=== PATIENT | female | born 2000 | race Caucasian/White ===

== ENCOUNTER 2018-05-14 13:28 | Inpatient (IN) | payer OTHER ==
[~2018-05-14] VITALS: Ht 152.4 cm; Wt 81.8 kg
[2018-05-14] MEDS ORDERED: LACTATED RINGERS 1,000 ML IV PRN (13:33)
[2018-05-14 13:45] VITALS: BP 143/83
[2018-05-14] MEDS ORDERED: ACETAMINOPHEN 325 MG TABLET ONE ×3 (14:28→23:27)
[2018-05-14 14:29] LABS: MICROSCOPIC INDICATED
[2018-05-14] MEDS: ACETAMINOPHEN 325 MG TABLET PO PRN ×3 (14:31→23:31)
[2018-05-14] MEDS ORDERED: PREN1TAB60 PO (15:41)
[2018-05-14] MEDS ORDERED: ALBUTEROL INH (15:47)
[2018-05-14] MEDS ORDERED: MONT10TA9 PO (15:49)
[2018-05-14] MEDS ORDERED: ACET325C5 PO (15:51)
[2018-05-14] MEDS ORDERED: LABETALOL 100 MG TABLET ONE (19:48)
[2018-05-14] MEDS: LABETALOL 100 MG TABLET PO SCH (19:50)
[2018-05-14] MEDS: SODIUM CHLORIDE FLUSH 10ML SYR IVF SCH (21:00)
[2018-05-15] MEDS ORDERED: LABETALOL 100 MG TABLET ONE ×3 (03:28→19:25)
[2018-05-15] MEDS: LABETALOL 100 MG TABLET PO SCH ×3 (03:31→19:44)
[2018-05-15] MEDS ORDERED: ACETAMINOPHEN 325 MG TABLET ONE ×2 (06:21→14:50)
[2018-05-15] MEDS: ACETAMINOPHEN 325 MG TABLET PO PRN ×2 (06:24→14:52)
[2018-05-15 06:26] LABS: MEAN CORPUSCULAR HGB CONC 34.3 g/dL (32.4-35.8); MEAN CORPUSCULAR VOLUME 90.5 fL (80-100); MEAN PLATELET VOLUME 8.6 fL (7.4-10.4); PLATELET COUNT 210 x10^3/uL (130-400); RED BLOOD COUNT 4.05 x10^6/uL (3.82-5.3); RED CELL DISTRIBUTION WIDTH 13.4 % (9.6-15.2)
[2018-05-15 06:38] LABS: ALANINE AMINOTRANSFERASE 16 U/L (12-78); ALBUMIN 2.1 g/dL (3.4-5.0); ANION GAP 12 mmol/L (5-15); CALCIUM 7.2 mg/dL (8.5-10.1); CHLORIDE 107 mmol/L (98-107); CREATININE 0.86 mg/dL (0.55-1.02)
[2018-05-15 06:40] LABS: ALKALINE PHOSPHATASE 127 U/L (45-117); BILIRUBIN,TOTAL 0.3 mg/dL (0.2-1.0); TOTAL PROTEIN 5.2 g/dL (6.4-8.2)
[2018-05-15 06:49] LABS: BASOPHILS # (AUTO) 0.01 x10^3/uL (0-0.3); BASOPHILS % (AUTO) 0 % (0-1); EOSINOPHILS # (AUTO) 0.01 x10^3/uL (0-0.8); EOSINOPHILS % (AUTO) 0 % (1-7); LYMPHOCYTES # (AUTO) 1.59 x10^3/uL (1-6.1); LYMPHOCYTES % (AUTO) 7 % (22-44); MD SCAN; MONOCYTES # (AUTO) 0.84 x10^3/uL (0-1.4); MONOCYTES % (AUTO) 4 % (2-9); NEUTROPHILS # (AUTO) 19.07 x10^3/uL (1.8-8.0); NEUTROPHILS % (AUTO) 89 % (42-75)
[2018-05-15] MEDS ORDERED: BETAMETHASONE 6 MG/ML, 5ML IM ONE (10:33)
[2018-05-15] MEDS: BETAMETHASONE 6 MG/ML, 5ML IM SCH (11:03)
[2018-05-15] MEDS: SODIUM CHLORIDE FLUSH 10ML SYR IVF SCH (17:00)
[2018-05-15 21:18] LABS: TOTAL PROTEIN 24HR,URINE 3105 mg/24hrs (0-149); TOTAL VOLUME 24HRS,URINE 675 mL
[2018-05-16] MEDS ORDERED: LABETALOL 100 MG TABLET ONE ×4 (01:59→22:52)
[2018-05-16] MEDS: LABETALOL 100 MG TABLET PO SCH ×4 (03:35→22:58)
[2018-05-16] MEDS: SODIUM CHLORIDE FLUSH 10ML SYR IVF SCH ×3 (03:35→23:22)
[2018-05-16 06:08] LABS: MEAN CORPUSCULAR HEMOGLOBIN 31.4 pg (27.0-34.8); MEAN CORPUSCULAR HGB CONC 34.7 g/dL (32.4-35.8); MEAN CORPUSCULAR VOLUME 90.6 fL (80-100); MEAN PLATELET VOLUME 8.7 fL (7.4-10.4); PLATELET COUNT 206 x10^3/uL (130-400); RED CELL DISTRIBUTION WIDTH 13.6 % (9.6-15.2)
[2018-05-16 06:09] LABS: CHLORIDE 109 mmol/L (98-107)
[2018-05-16 06:18] LABS: ALANINE AMINOTRANSFERASE 18 U/L (12-78); ALBUMIN 2.1 g/dL (3.4-5.0); ALKALINE PHOSPHATASE 126 U/L (45-117); ANION GAP 11 mmol/L (5-15); BILIRUBIN,TOTAL 0.3 mg/dL (0.2-1.0); CALCIUM 7.6 mg/dL (8.5-10.1); CREATININE 0.87 mg/dL (0.55-1.02); TOTAL PROTEIN 5.3 g/dL (6.4-8.2)
[2018-05-16 06:38] LABS: MD YES
[2018-05-16 07:05] LABS: <PLATELET ESTIMATE> ADEQUATE; <PLT MORPHOLOGY> NORMAL PLT MORPH; <RBC MORPHOLOGY> NORMAL; BAND#(MANUAL) 0.52 x10^3/uL; BANDS%(MANUAL) 2 % (0-7); LYMPH#(MANUAL) 2.62 x10^3/uL (1-6.1); LYMPHS% (MANUAL) 10 % (22-44); MONOS#(MANUAL) 1.05 x10^3/uL (0.3-2.7); MONOS% (MANUAL) 4 % (2-9); SEG#(MANUAL) 22.01 x10^3/uL (1.8-8); SEGS% (MANUAL) 84 % (42-75)
[2018-05-16] MEDS: BETAMETHASONE 6 MG/ML, 5ML IM SCH (10:30)
[2018-05-16] MEDS ORDERED: ACETAMINOPHEN 325 MG TABLET ONE ×2 (19:31→22:52)
[2018-05-16] MEDS: ACETAMINOPHEN 325 MG TABLET PO PRN (19:32)
[2018-05-16 23:23] VITALS: BP 158/87
[2018-05-17 01:41] LABS: FIO2 RA %
[2018-05-17] MEDS ORDERED: FENTANYL PF 100 MCG/2ML ONE (01:53)
[2018-05-17] MEDS: ACETAMINOPHEN 325 MG TABLET PO PRN ×2 (01:56→12:27)
[2018-05-17] MEDS ORDERED: FENTANYL PF 100 MCG/2ML IVPush PRN (02:00)
[2018-05-17 05:32] LABS: MEAN CORPUSCULAR HEMOGLOBIN 31.4 pg (27.0-34.8); MEAN CORPUSCULAR HGB CONC 34.4 g/dL (32.4-35.8); MEAN CORPUSCULAR VOLUME 91.3 fL (80-100); MEAN PLATELET VOLUME 8.3 fL (7.4-10.4); PLATELET COUNT 207 x10^3/uL (130-400); RED BLOOD COUNT 3.86 x10^6/uL (3.82-5.3); RED CELL DISTRIBUTION WIDTH 13.8 % (9.6-15.2)
[2018-05-17 05:39] LABS: ANION GAP 12 mmol/L (5-15); CALCIUM 7.5 mg/dL (8.5-10.1); CHLORIDE 110 mmol/L (98-107)
[2018-05-17 05:43] LABS: ALANINE AMINOTRANSFERASE 18 U/L (12-78); ALKALINE PHOSPHATASE 116 U/L (45-117); BILIRUBIN,TOTAL 0.3 mg/dL (0.2-1.0); CREATININE 0.87 mg/dL (0.55-1.02)
[2018-05-17 05:51] LABS: BILIRUBIN, DIRECT < 0.1 mg/dL (0.1-0.2)
[2018-05-17 06:03] LABS: MD YES
[2018-05-17 06:05] LABS: <PLATELET ESTIMATE> ADEQUATE; <PLT MORPHOLOGY> NORMAL PLT MORPH; <RBC MORPHOLOGY> NORMAL; BAND#(MANUAL) 1.27 x10^3/uL; BANDS%(MANUAL) 6 % (0-7); LYMPH#(MANUAL) 1.48 x10^3/uL (1-6.1); LYMPHS% (MANUAL) 7 % (22-44); METAMYELOCYTES# (MANUAL) 0.21 x10^3/uL (0-0); METAMYELOCYTES% (MANUAL) 1 % (0-1); MONOS#(MANUAL) 0.85 x10^3/uL (0.3-2.7); MONOS% (MANUAL) 4 % (2-9); MYELOCYTES# (MANUAL) 0.21 x10^3/uL (0-0); MYELOCYTES% (MANUAL) 1 % (0-0); SEG#(MANUAL) 17.17 x10^3/uL (1.8-8); SEGS% (MANUAL) 81 % (42-75)
[2018-05-17] MEDS ORDERED: LABETALOL 100 MG TABLET ONE ×3 (08:16→22:27)
[2018-05-17] MEDS: LABETALOL 100 MG TABLET PO SCH ×3 (08:19→22:35)
[2018-05-17] MEDS: SODIUM CHLORIDE FLUSH 10ML SYR IVF SCH ×2 (08:19→15:57)
[2018-05-17] MEDS ORDERED: ACETAMINOPHEN 325 MG TABLET ONE (12:24)
[2018-05-17] MEDS ORDERED: OXYTOCIN 30U/ 0.9% NaCL 500ML 500 ML IV SCH (16:49)
[2018-05-17] MEDS ORDERED: NEWBORN KIT ONE (16:56)
[2018-05-17] MEDS ORDERED: METOCLOPRAMIDE 5 MG/ML, 2ML ONE ×2 (16:56→21:26)
[2018-05-17] MEDS ORDERED: OXYTOCIN 30U/ 0.9% NaCL 500ML 500 ML ONE (16:56)
[2018-05-17] MEDS ORDERED: SODIUM CITRATE/CITRIC ACID 30 ML UDC ONE (16:56)
[2018-05-17] MEDS ORDERED: SODIUM CITRATE/CITRIC ACID 30 ML UDC PO ONE (17:00)
[2018-05-17] MEDS ORDERED: METOCLOPRAMIDE 5 MG/ML, 2ML IV ONE (17:00)
[2018-05-17] MEDS ORDERED: LACTATED RINGERS 1,000 ML IVBOLUS PRN (17:30)
[2018-05-17] MEDS ORDERED: morphine SULFATE/PF 0.5 MG/ML, 10ML ONE (17:41)
[2018-05-17] MEDS ORDERED: MAGNESIUM SULF. PMX 20GM/500ML 500 ML IV ONE (18:03)
[2018-05-17] MEDS ORDERED: MAGNESIUM SULF. PMX 20GM/500ML 500 ML IV SCH (18:05)
[2018-05-17] MEDS ORDERED: MAGNESIUM SULFATE PMX 4GM/100M 100 ML IVPB ONE (18:30)
[2018-05-17] MEDS ORDERED: ONDANSETRON 2MG/ML, 2ML ONE ×2 (19:27→20:02)
[2018-05-17] MEDS ORDERED: PHENYLEPHRINE 10 MG/ML ONE (19:27)
[2018-05-17] MEDS ORDERED: WATER-INJECTION,STERILE 10 ML IV ONE (19:27)
[2018-05-17] MEDS ORDERED: CEFAZOLIN 1,000 MG ONE (19:27)
[2018-05-17] MEDS ORDERED: EPHEDRINE 50 MG/ML, 1ML ONE (19:27)
[2018-05-17] MEDS ORDERED: OXYTOCIN 10 UNITS/ML, 1ML ONE (19:27)
[2018-05-17] MEDS ORDERED: EPINEPHRINE 1 MG/ML, 1ML ONE (19:29)
[2018-05-17] MEDS ORDERED: LACTATED RINGERS 1,000 ML IV SCH ×3 (20:00→20:01)
[2018-05-17] MEDS ORDERED: MAGNESIUM SULF. PMX 20GM/500ML 500 ML IV PRN (20:06)
[2018-05-17] MEDS ORDERED: BISACODYL 10 MG SUPP PR PRN (20:30)
[2018-05-17] MEDS ORDERED: ACETAMINOPHEN 325 MG TABLET PO PRN (20:30)
[2018-05-17] MEDS ORDERED: CALCIUM GLUCONATE 0.46MEQ/1ML IVPush ONE (20:30)
[2018-05-17] MEDS ORDERED: MISOPROSTOL 200 MCG TABLET PO PRN (20:30)
[2018-05-17] MEDS ORDERED: RHOGAM FROM BLOOD BANK 1 NOTE EA IM/IV ONE (20:30)
[2018-05-17] MEDS ORDERED: METOCLOPRAMIDE 5 MG/ML, 2ML IV PRN (20:30)
[2018-05-17] MEDS ORDERED: SIMETHICONE 80 MG CHEW TAB PO PRN (20:30)
[2018-05-17] MEDS: OXYTOCIN 30U/ 0.9% NaCL 500ML 500 ML IV SCH (20:51)
[2018-05-17] MEDS ORDERED: KETOROLAC 30 MG/1 ML ONE (21:26)
[2018-05-17] MEDS ORDERED: KETOROLAC 30 MG/1 ML IM PRN (21:30)
[2018-05-17] MEDS ORDERED: KETOROLAC 30 MG/1 ML IVPush SCH (21:30)
[2018-05-17 22:41] VITALS: BP 133/69
[2018-05-18] MEDS ORDERED: MAGNESIUM SULF. PMX 20GM/500ML 500 ML IV ONE ×2 (02:46→14:16)
[2018-05-18] MEDS ORDERED: OXYcodone/APAP 5/325MG TABLET ONE ×3 (02:46→14:16)
[2018-05-18] MEDS: OXYcodone/APAP 5/325MG TABLET PO PRN ×3 (02:51→14:18)
[2018-05-18 03:30] VITALS: BP 153/84
[2018-05-18] MEDS ORDERED: ALBUTEROL SULFATE 2.5 MG/3 ML NPPB PRN (05:00)
[2018-05-18 05:55] LABS: MEAN CORPUSCULAR HEMOGLOBIN 31.5 pg (27.0-34.8); MEAN CORPUSCULAR HGB CONC 34.4 g/dL (32.4-35.8); MEAN CORPUSCULAR VOLUME 91.6 fL (80-100); MEAN PLATELET VOLUME 8.2 fL (7.4-10.4); PLATELET COUNT 194 x10^3/uL (130-400); RED BLOOD COUNT 4.09 x10^6/uL (3.82-5.3); RED CELL DISTRIBUTION WIDTH 13.5 % (9.6-15.2)
[2018-05-18] MEDS: OXYTOCIN 30U/ 0.9% NaCL 500ML 500 ML IV SCH ×2 (06:01→16:01)
[2018-05-18 06:07] LABS: CHLORIDE 107 mmol/L (98-107)
[2018-05-18 06:21] LABS: MD YES
[2018-05-18 06:22] LABS: BANDS%(MANUAL) 2 % (0-7); LYMPH#(MANUAL) 1.41 x10^3/uL (1-6.1); LYMPHS% (MANUAL) 7 % (22-44); MONOS#(MANUAL) 1.01 x10^3/uL (0.3-2.7); MONOS% (MANUAL) 5 % (2-9); NRBC % (MANUAL) 1 % (0-1); SEG#(MANUAL) 17.37 x10^3/uL (1.8-8); SEGS% (MANUAL) 86 % (42-75)
[2018-05-18 06:23] LABS: <PLATELET ESTIMATE> ADEQUATE; <PLT MORPHOLOGY> NORMAL PLT MORPH; <RBC MORPHOLOGY> NORMAL
[2018-05-18 06:35] LABS: ALANINE AMINOTRANSFERASE 19 U/L (12-78); ALKALINE PHOSPHATASE 125 U/L (45-117); ANION GAP 10 mmol/L (5-15); BILIRUBIN,TOTAL 0.4 mg/dL (0.2-1.0); CALCIUM 7.2 mg/dL (8.5-10.1); CREATININE 0.84 mg/dL (0.55-1.02); TOTAL PROTEIN 5.1 g/dL (6.4-8.2)
[2018-05-18] MEDS ORDERED: LABETALOL 100 MG TABLET ONE ×3 (07:07→21:29)
[2018-05-18] MEDS: LABETALOL 100 MG TABLET PO SCH ×3 (07:10→21:31)
[2018-05-18] MEDS: PRENATAL VIT/IRON/FA 1 EACH TABLET PO SCH (09:00)
[2018-05-18] MEDS ORDERED: MORPHINE SULFATE 4 MG/ML, 1ML IVPush PRN (17:30)
[2018-05-18] MEDS ORDERED: MORPHINE SULFATE 4 MG/ML, 1ML ONE (17:32)
[2018-05-18] MEDS ORDERED: OXYcodone IR 5MG TABLET ONE ×2 (17:38→21:29)
[2018-05-18] MEDS: OXYcodone IR 5MG TABLET PO PRN ×2 (17:40→21:31)
[2018-05-18 19:29] VITALS: BP 163/95
[2018-05-18] MEDS ORDERED: MAGNESIUM SULF. PMX 20GM/500ML 500 ML IV PRN (20:06)
[2018-05-18] MEDS ORDERED: hydrALAzine 20 MG/ML, 1ML ONE (21:21)
[2018-05-18] MEDS ORDERED: ACETAMINOPHEN 325 MG TABLET ONE (21:29)
[2018-05-18] MEDS ORDERED: hydrALAzine 20 MG/ML, 1ML IVPush ONE ×3 (21:30)
[2018-05-18] MEDS ORDERED: LABETALOL 5MG/ML 40ML VIAL IVPush ONE (21:30)
[2018-05-19] MEDS ORDERED: OXYcodone IR 5MG TABLET ONE ×2 (01:03→05:05)
[2018-05-19] MEDS: OXYcodone IR 5MG TABLET PO PRN ×3 (01:06→09:22)
[2018-05-19 01:10] VITALS: BP 134/87
[2018-05-19] MEDS: OXYTOCIN 30U/ 0.9% NaCL 500ML 500 ML IV SCH ×2 (02:01→12:01)
[2018-05-19] MEDS ORDERED: LABETALOL 100 MG TABLET ONE (06:13)
[2018-05-19] MEDS: LABETALOL 100 MG TABLET PO SCH ×3 (06:16→21:27)
[2018-05-19 07:55] VITALS: BP 152/83
[2018-05-19] MEDS ORDERED: niFEDipine ER 60 MG TABLET.ER PO ONE (08:27)
[2018-05-19] MEDS: niFEDipine ER 60 MG TABLET.ER PO SCH (08:29)
[2018-05-19] MEDS: PRENATAL VIT/IRON/FA 1 EACH TABLET PO SCH (09:21)
[2018-05-19] MEDS: DOCUSATE 100 MG CAPSULE PO PRN (09:21)
[2018-05-19 12:30] VITALS: BP 125/70
[2018-05-19] MEDS: OXYcodone/APAP 5/325MG TABLET PO PRN ×3 (14:12→22:53)
[2018-05-19 16:30] VITALS: BP 127/71
[2018-05-19 17:45] VITALS: BP 141/79
[2018-05-19 20:00] VITALS: BP 151/81
[2018-05-20] VITALS (7 sets, daily range): BP systolic 130–169; BP diastolic 76–93
[2018-05-20] MEDS: OXYcodone/APAP 5/325MG TABLET PO PRN ×5 (03:56→22:33)
[2018-05-20] MEDS: LABETALOL 100 MG TABLET PO SCH ×2 (04:57→14:57)
[2018-05-20] MEDS: niFEDipine ER 60 MG TABLET.ER PO SCH (08:02)
[2018-05-20] MEDS: PRENATAL VIT/IRON/FA 1 EACH TABLET PO SCH (08:02)
[2018-05-20] MEDS: DOCUSATE 100 MG CAPSULE PO PRN (08:02)
[2018-05-21] VITALS: BP 134/82
[2018-05-21 04:00] VITALS: BP 154/93
[2018-05-21] MEDS: OXYcodone/APAP 5/325MG TABLET PO PRN ×3 (05:58→14:21)
[2018-05-21 08:30] VITALS: BP 161/97
[2018-05-21] MEDS: niFEDipine ER 60 MG TABLET.ER PO SCH (08:38)
[2018-05-21] MEDS: LABETALOL 100 MG TABLET PO SCH ×2 (08:38→14:21)
[2018-05-21] MEDS: PRENATAL VIT/IRON/FA 1 EACH TABLET PO SCH (08:38)
[2018-05-21] MEDS: DOCUSATE 100 MG CAPSULE PO PRN (08:38)
[2018-05-21 09:33] VITALS: BP 127/70
[2018-05-21 12:30] VITALS: BP 119/79
[2018-05-21] MEDS ORDERED: OXYC-302 PO (15:31)
[2018-05-21] MEDS ORDERED: DOCU-131 PO (15:31)
[2018-05-21] MEDS ORDERED: NIFE60TA2 PO (15:32)
[2018-05-21] MEDS ORDERED: LABE100T6 PO (15:32)
== END 2018-05-21 15:45 | disposition home or self-care (01) | DRG 788 ==
LOC: LDIP 13:28 → 2NE 05-17 22:39 → 2NW 05-19 00:10 → 2NE 05-19 00:13 → 2NW 05-20 04:44
PROVIDERS: ADMIT Obstetrics & Gynecology Maternal & Fetal Medicine; ATTEND Obstetrics & Gynecology Maternal & Fetal Medicine
PROC: 10D00Z1 Extraction of Products of Conception, Low, Open Approach (ICD-10-PCS; principal; 2018-05-18)
PROC: 3E0234Z Introduction of Serum, Toxoid and Vaccine into Muscle, Percutaneous Approach (ICD-10-PCS; 2018-05-18)
DX: O69.81X0 Labor and delivery complicated by cord around neck, without compression, not applicable or unspecified (principal); O14.14 Severe pre-eclampsia complicating childbirth; Z3A.31 31 weeks gestation of pregnancy; Z37.0 Single live birth; O99.52 Diseases of the respiratory system complicating childbirth; R06.4 Hyperventilation; J45.909 Unspecified asthma, uncomplicated; O26.893 Other specified pregnancy related conditions, third trimester; Z91.041 Radiographic dye allergy status; Z91.040 Latex allergy status; Z90.49 Acquired absence of other specified parts of digestive tract
CPT/HCPCS: 36415; 36600; 85613; 85670; 85705; 85732; 86146; 86147; J2790; 71045; 76805; 80053; 81001; 81050; 82248; 82570; 82803; 83735; 84156; 84550; 85025; 85461; 86235; 86850; 86870; 86900; 87081; 93005; G0378; J0171; J0610; J0690; J0702; J1885; J2274; J2405; J0360; J2370; J2590; J2765; J3475; J7120